=== PATIENT | female | born 1930 | race Caucasian/White ===

== ENCOUNTER → 2017-11-18 | Outpatient (CLI) | payer MEDICARE, BC ==
--- NOTE | 2017-11-18 20:22 | CT ---
EXAMINATION TYPE: CT sinus wo con DATE OF EXAM: 11/18/2017 COMPARISON: NONE HISTORY: Chronic sinusitis per order. Headache and facial pain CT DLP: 588 mGycm. Automated Exposure Control for Dose Reduction was Utilized. TECHNIQUE: CT scan of the sinuses is performed without contrast, axial images are obtained, coronal r eformatted images are also reviewed. FINDINGS: There is mild to moderate mucosal thickening with additional suspicious patchy suspicious o pacification the right maxillary sinus centrally. There is mild mucosal thickening with suspicious ai r-fluid level in the left maxillary sinus. There is curvilinear mucosal thickening posteriorly in the left sphenoid sinus medial aspect. The remainder of the paranasal sinuses are clear. The ostiomeatal complex is patent bilaterally on the coronal images seen best coronal image 19. Visualized portion of mastoid air cells show no abnormal opacification. The globes are intact bilate rally. Visualized brain parenchyma shows age-related atrophy and chronic small vessel ischemic nguyen e. IMPRESSION: Acute on chronic bilateral maxillary sinus disease.
== END | disposition home or self-care (01) ==
LOC: RADCTMAIN 19:32
PROVIDERS: ATTEND Otolaryngology
DX: J01.00 Acute maxillary sinusitis, unspecified (principal); J32.0 Chronic maxillary sinusitis
CPT/HCPCS: 70486

== ENCOUNTER → 2019-04-26 | Outpatient (CLI) | payer MEDICARE ==
--- NOTE | 2019-04-26 11:54 | US ---
EXAMINATION TYPE: US carotid duplex BILAT DATE OF EXAM: 04/26/2019 COMPARISON: NONE CLINICAL HISTORY: R09.89 Carotid bruit. EXAM MEASUREMENTS: RIGHT: Peak Systolic Velocity (PSV) cm/sec ----- Right CCA: 79.9 ----- Right ICA: 80.9 ----- Right ECA: 95.2 ICA/CCA ratio: 1.0 RIGHT: End Diastole cm/sec ----- Right CCA: 13.6 ----- Right ICA: 22.6 ----- Right ECA: 0.0 LEFT: Peak Systolic Velocity (PSV) cm/sec ----- Left CCA: 79.8 ----- Left ICA: 90.8 ----- Left ECA: 71.2 ICA/CCA ratio: 1.1 LEFT: End Diastole cm/sec ----- Left CCA: 10.6 ----- Left ICA: 22.6 ----- Left ECA: 11.0 VERTEBRALS (direction of flow): Right Vertebral: Antegrade Left Vertebral: Antegrade Rhythm: Normal Mild atherosclerotic changes with no significant velocity elevations. IMPRESSION: Mild degree of grayscale atheromatous plaquing with no sonographically evident hemodynam ically significant stenosis within either visualized carotid arterial system. Criteria for Assigning % of Stenosis / Diameter reduction (Estimation based on the indirect measurements of the internal carotid artery velocities (ICA PSV). 1. Normal (no stenosis)=ICA PSV < 125 cm/s: ratio < 2.0: ICA EDV<40 cm/s. 2. Less than 50% stenosis=ICA PSV < 125 cm/s: ratio < 2.0: ICA EDV<40 cm/s. 3. 50 to 69% stenosis=ICA PSV of 125 to 230 cm/s: ration 2.0 ? 4.0: ICA EDV 40-100 cm/s. 4. Greater than 70% stenosis to near occlusion= ICA PSV > 230 cm/s: ratio > 4.0: ICA EDV > 100 cm/s. 5. Near occlusion= ICA PSV velocities may be low or undetectable: variable ratio and ICA EDV. 6. Total occlusion=unable to detect flow.
== END | disposition home or self-care (01) ==
LOC: RADUSWWP 10:30
PROVIDERS: ATTEND Family Medicine
DX: I65.23 Occlusion and stenosis of bilateral carotid arteries (principal)
CPT/HCPCS: 93880

== ENCOUNTER → 2021-01-22 | Outpatient (CLI) | payer MEDICARE ==
--- NOTE | 2021-01-22 16:27 | US ---
EXAMINATION TYPE: US venous doppler duplex LE DATE OF EXAM: 01/22/2021 4:09 PM COMPARISON: NONE CLINICAL HISTORY: R22.42,R22.41 SWELLING BRI LIMBS. SIDE PERFORMED: Bilateral TECHNIQUE: The lower extremity deep venous system is examined utilizing real time linear array sonog zeus with graded compression, doppler sonography and color-flow sonography. VESSELS IMAGED: Common Femoral Vein Deep Femoral Vein Greater Saphenous Vein * Femoral Vein Popliteal Vein Small Saphenous Vein * Proximal Calf Veins (* superficial vessels) Right Leg: Negative for DVT Left Leg: Negative for DVT IMPRESSION: 1. Bilateral lower extremity ultrasound negative for deep venous thrombosis.
== END | disposition home or self-care (01) ==
LOC: RADUSWWP 15:38
PROVIDERS: ATTEND Family Medicine
DX: R22.41 Localized swelling, mass and lump, right lower limb (principal); R22.42 Localized swelling, mass and lump, left lower limb
CPT/HCPCS: 93970

== ENCOUNTER 2021-02-16 06:02 | Day surgery (SDC) | payer MEDICARE ==
[2021-02-12 10:09] VITALS: BMI 27.4
[~2021-02-16 06:02] MED LIST: LACTATED RINGERS 1,000 ML IV SCH; SODIUM CHLORIDE 0.9% 1,000 ML IV SCH
[2021-02-16] MEDS ORDERED: SODIUM CHLORIDE 0.9% 500 ML 500 ML IV ONE (06:20)
[2021-02-16 06:43] VITALS: TEMP 98.1
[2021-02-16 06:51] LABS: Glucose,Whole Blood 181 mg/dL (75-99)
[2021-02-16] MEDS: BENZOCAINE SPRAY 1 CAN TOPICAL ONE ×2 (07:14→07:19)
[2021-02-16] MEDS ORDERED: PROPOFOL 10 MG/ML 20 ML VIAL IV ONE (07:15)
[2021-02-16] MEDS ORDERED: LIDOCAINE 1% INJ 10MG/ML (20 ML MDV) ONE (07:15)
[2021-02-16] MEDS ORDERED: CYCLOBENZAPRINE 5 MG TAB PO PRN (07:36)
[2021-02-16] MEDS ORDERED: SODIUM CHLORIDE 0.9% 1,000 ML IV SCH (07:45)
[2021-02-16 08:19] VITALS: RESP 16
[2021-02-16] MEDS ORDERED: NON FORMULARY DRUG (Metformin Hcl [Glucophage] 1,000 MG Tablet) PO SCH (09:00)
[2021-02-16] MEDS ORDERED: methIMAzole 5 MG TAB PO SCH (09:00)
[2021-02-16] MEDS ORDERED: ATORVASTATIN 40 MG TAB PO SCH (09:00)
[2021-02-16] MEDS ORDERED: ASPIRIN 81 MG PO SCH (09:00)
[2021-02-16 09:16] VITALS: BP 117/58; PULSE 62
--- NOTE | 2021-02-16 11:38 | ECHOT ---
TRANSESOPHAGEAL ECHOCARDIOGRAM INDICATION: Atrial fibrillation. PROCEDURE: After explaining the procedure to the patient its risks and complication, blood pressure, heart rate, O2 saturation was monitored. The throat was sprayed with Cetacaine, she received sedation per Anesthesia Department. The probe was introduced in the esophagus without difficulty. Images were obtained. Following that, the probe was removed there was no immediate complication. FINDINGS: Left atrial size is dilated. Left atrial appendage is normal. Spontaneous contrast was noted. Left ventricular size and systolic function normal. The aortic valve revealed fibrocalcific change with aortic cusp with preserved opening. Mitral annular calcification was noted. The tricuspid valve is normal. Descending thoracic aorta revealed mild atherosclerotic changes. No pericardial effusion was noted. Doppler pulse wave and color Doppler obtained revealed moderate mitral with mild aortic and tricuspid regurgitation. There was no shunting by color Doppler study. CONCLUSION: 1. Dilated left atrium with normal appearance left atrial appendage with spontaneous contrast. 2. Normal size systolic function. 3. Aortic sclerosis with no evident stenosis with mild aortic regurgitation. 4. Mitral annulus calcification with moderate mitral regurgitation. 5. Mild tricuspid regurgitation. 6. Mild atherosclerotic changes of the descending thoracic aorta. 7. No shunting across the interatrial septum. MMODL / IJN: [id number] /
--- NOTE | 2021-02-16 12:05 | PCN ---
PROCEDURE NOTE CARDIOVERSION PROCEDURE NOTE: INDICATION: Atrial fibrillation. PROCEDURE: After explaining the procedure to the patient as well as its risks, complications, after obtaining sedated state and performing transesophageal echocardiogram, a synchronized biphasic cardioversion using 75 and subsequently 100 joules was successful in restoring sinus mechanism. There was no immediate complication. ZULEYKA / LEONCIO: [id number] /
[2021-02-16] MEDS ORDERED: APIXABAN 2.5 MG TABLET PO SCH (21:00)
[2021-02-16] MEDS ORDERED: atenoloL 50 MG TAB PO SCH (21:00)
[2021-02-16] MEDS ORDERED: amLODIPine 5 MG TAB PO SCH (21:00)
[2021-02-17] MEDS ORDERED: GLIMEPIRIDE 0.5 MG TAB PO SCH (07:30)
[2021-02-17] MEDS ORDERED: LOSARTAN 50 MG TAB PO SCH (09:00)
== END 2021-02-16 09:22 | disposition home or self-care (01) ==
LOC: CATHCVL 06:02
PROVIDERS: ATTEND Internal Medicine Interventional Cardiology
DX: I48.91 Unspecified atrial fibrillation (principal); I70.0 Atherosclerosis of aorta; I34.0 Nonrheumatic mitral (valve) insufficiency; E78.5 Hyperlipidemia, unspecified; I10 Essential (primary) hypertension; E11.9 Type 2 diabetes mellitus without complications; F17.200 Nicotine dependence, unspecified, uncomplicated; I25.10 Atherosclerotic heart disease of native coronary artery without angina pectoris; I49.9 Cardiac arrhythmia, unspecified; M19.90 Unspecified osteoarthritis, unspecified site; Z79.82 Long term (current) use of aspirin; Z82.49 Family history of ischemic heart disease and other diseases of the circulatory system
CPT/HCPCS: 93312; 93320; 93325; 92960; J2001; J2704

== ENCOUNTER 2021-06-05 21:45 | Inpatient (IN) | payer MEDICARE ==
[2021-06-05 22:51] LABS: Basophils % (A) 0 %; Eosinophils # (A) 0.1 k/uL (0-0.7); Eosinophils % (A) 1 %; HCT 39.6 % (34.0-46.0); HGB 12.9 gm/dL (11.4-16.0); Lymphocytes # (A) 1.4 k/uL (1.0-4.8); Lymphocytes % (A) 9 %; MCH 30.4 pg (25.0-35.0); MCHC 32.7 g/dL (31.0-37.0); Mean Platelet Volume 7.5; Monocytes # (A) 0.6 k/uL (0-1.0); Monocytes % (A) 4 %; Neutrophils # (A) 12.9 k/uL (1.3-7.7); Neutrophils % (A) 86 %; Platelet Count 380 k/uL (150-450); RBC 4.26 m/uL (3.80-5.40); RDW 14.6 % (11.5-15.5); WBC 15.1 k/uL (3.8-10.6)
[2021-06-05 22:52] LABS: Prothrombin Time 10.8 sec (9.0-12.0)
[2021-06-05 22:55] LABS: Albumin 3.8 g/dL (3.5-5.0); Calcium 9.6 mg/dL (8.4-10.2); Potassium 4.2 mmol/L (3.5-5.1); Total Bilirubin 0.4 mg/dL (0.2-1.3); Total Protein 6.6 g/dL (6.3-8.2)
--- NOTE | 2021-06-05 23:00 | ED ---
SOB HPI - General Stated Complaint: BOBBY Time Seen by Provider: 06/05/21 22:11 Source: RN notes reviewed, old records reviewed Limitations: no limitations - History of Present Illness Initial Comments: This is an 89-year-old female to the ER for evaluation significant shortness of breath especially with exertion. Patient does have recent diagnosis of coronavirus 2 weeks prior. Patient has again person Short of breath feeling better sitting still. Or significant shortness breath with activity. No current chest pain no other complaints no recent fevers she does admit to being probably the worse ever failure presented have coronavirus is atrial fibrillation diabetes high cholesterol MD Complaint: shortness of breath, cough -: hour(s) Severity: moderate Severity scale (1-10): 3 Consistency: constant Improves With: oxygen, rest Worsens With: exertion Known History Of: other (Recent coronavirus) Context: recent URI, recent illness Associated Symptoms: denies other symptoms Treatments Prior to Arrival: none - Related Data Home Medications Medication Instructions Recorded Confirmed Atorvastatin [Lipitor] 40 mg PO DAILY 08/18/15 02/16/21 Losartan [Cozaar] 100 mg PO DAILY 08/18/15 02/16/21 atenoloL [Tenormin] 50 mg PO BID 08/18/15 02/16/21 metFORMIN HCL [Glucophage] 1,000 mg PO BID 08/18/15 02/16/21 methIMAzole [Tapazole] 5 mg PO DAILY 08/18/15 02/16/21 ALPRAZolam [Xanax] 0.25 mg PO DAILY PRN 08/20/15 02/16/21 Acetaminophen-Codeine 300-30mg 1 - 2 tab PO Q8H PRN 08/20/15 02/16/21 [Tylenol w/codeine #3] Cyclobenzaprine [Flexeril] 5 mg PO HS PRN 08/20/15 02/16/21 Apixaban [Eliquis] 2.5 mg PO BID 02/12/21 02/16/21 Glimepiride [Amaryl] 0.5 mg PO AC-BRKFST 02/12/21 02/16/21 amLODIPine [Norvasc] 5 mg PO HS 02/12/21 02/16/21 Previous Rx's Medication Instructions Recorded Aspirin 81 mg PO DAILY chew 08/21/15 Allergies Allergy/AdvReac Type Severity Reaction Status Date / Time No Known Allergies Allergy Verified 06/05/21 23:09 Review of Systems ROS Statement: Those systems with pertinent positive or pertinent negative responses have been documented in the HPI. ROS Other: All systems not noted in ROS Statement are negative. Past Medical History Past Medical History: Atrial Fibrillation, Diabetes Mellitus, Hyperlipidemia, Hypertension, Osteoarthritis (OA) Additional Past Medical History / Comment(s): 08/20/15 Pt admitted to floor s/p PTCA with 2 stents placed. Other HX: NIDDM, HEART MURMUR, VERTIGO, arthritis in hands, migraines. History of Any Multi-Drug Resistant Organisms: None Reported Past Surgical History: Cholecystectomy, Heart Catheterization With Stent, Orthopedic Surgery Additional Past Surgical History / Comment(s): 08/20/15 PCI with stent to mid RCA and stent to proximal RCA. Other surgical hx: RIGHT HAND SURGERY- RECONSTRUCTION Past Anesthesia/Blood Transfusion Reactions: No Reported Reaction, Motion Sickness Date of Last Stent Placement:: 08/20/15 Smoking Status: Never smoker - Past Family History Mother Family Medical History: Cancer Additional Family Medical History / Comment(s): LIVER CANCER General Exam General appearance: alert, in no apparent distress Head exam: Present: atraumatic, normocephalic, normal inspection Eye exam: Present: normal appearance, PERRL, EOMI. Absent: scleral icterus, conjunctival injection, periorbital swelling ENT exam: Present: normal exam, mucous membranes moist Neck exam: Present: normal inspection. Absent: tenderness, meningismus, lymphadenopathy Respiratory exam: Present: normal lung sounds bilaterally, rhonchi, decreased breath sounds. Absent: respiratory distress, wheezes, rales, stridor Cardiovascular Exam: Present: regular rate, normal rhythm, normal heart sounds. Absent: systolic murmur, diastolic murmur, rubs, gallop, clicks GI/Abdominal exam: Present: soft, normal bowel sounds. Absent: distended, ten derness, guarding, rebound, rigid Extremities exam: Present: normal inspection, full ROM, normal capillary refill. Absent: tenderness, pedal edema, joint swelling, calf tenderness Back exam: Present: normal inspection Neurological exam: Present: alert, oriented X3, CN II-XII intact Psychiatric exam: Present: normal affect, normal mood Skin exam: Present: warm, dry, intact, normal color. Absent: rash Course Vital Signs 06/05/21 06/05/21 06/05/21 21:50 22:45 23:45 Temperature 99.9 F H Pulse Rate 78 72 Respiratory 16 20 16 Rate Blood Pressure 128/95 126/80 O2 Sat by Pulse 97 99 Oximetry 06/06/21 06/06/21 01:30 01:36 Temperature Pulse Rate 80 76 Respiratory 18 20 Rate Blood Pressure 120/77 126/77 O2 Sat by Pulse 97 99 Oximetry - Reevaluation(s) Reevaluation #1: 06/06/21 02:17 Record is reviewed Reevaluation #2: 06/06/21 02:17 Patient is in no significant distress, currently denying chest pain Reevaluation #3: 06/06/21 02:17 Patient is informed results and questions answered Medical Decision Making - Medical Decision Making 89 female to the ER today for evaluation of shortness of breath. Patient does have mildly elevated troponin will some CHF likely stress-related secondary recent coronavirus infection no chest pain currently. Patient [place] for cardiology evaluation - Lab Data Result diagrams: 06/05/21 22:28 06/05/21 22:28 Lab Results 06/05/21 06/05/21 06/05/21 Range/Units 22:28 22:28 22:28 WBC 15.1 H (3.8-10.6) k/uL RBC 4.26 (3.80-5.40) m/uL Hgb 12.9 (11.4-16.0) gm/dL Hct 39.6 (34.0-46.0) % MCV 93.0 (80.0-100.0) fL MCH 30.4 (25.0-35.0) pg MCHC 32.7 (31.0-37.0) g/dL RDW 14.6 (11.5-15.5) % Plt Count 380 (150-450) k/uL MPV 7.5 Neutrophils % 86 % Lymphocytes % 9 % Monocytes % 4 % Eosinophils % 1 % Basophils % 0 % Neutrophils # 12.9 H (1.3-7.7) k/uL Lymphocytes # 1.4 (1.0-4.8) k/uL Monocytes # 0.6 (0-1.0) k/uL Eosinophils # 0.1 (0-0.7) k/uL Basophils # 0.0 (0-0.2) k/uL PT 10.8 (9.0-12.0) sec INR 1.0 (<1.2) Sodium 137 (137-145) mmol/L Potassium 4.2 (3.5-5.1) mmol/L Chloride 101 (98-107) mmol/L Carbon Dioxide 24 (22-30) mmol/L Anion Gap 12 mmol/L BUN 22 H (7-17) mg/dL Creatinine 0.78 (0.52-1.04) mg/dL Est GFR (CKD-EPI)AfAm 78 (>60 ml/min/1.73 sqM) Est GFR (CKD-EPI)NonAf 68 (>60 ml/min/1.73 sqM) Glucose 191 H (74-99) mg/dL Calcium 9.6 (8.4-10.2) mg/dL Total Bilirubin 0.4 (0.2-1.3) mg/dL AST 96 H (14-36) U/L ALT 69 H (4-34) U/L Alkaline Phosphatase 142 H (38-126) U/L Troponin I (0.000-0.034) ng/mL Total Protein 6.6 (6.3-8.2) g/dL Albumin 3.8 (3.5-5.0) g/dL Coronavirus (PCR) (Not Detectd) 06/05/21 06/05/21 Range/Units 22:28 23:08 WBC (3.8-10.6) k/uL RBC (3.80-5.40) m/uL Hgb (11.4-16.0) gm/dL Hct (34.0-46.0) % MCV (80.0-100.0) fL MCH (25.0-35.0) pg MCHC (31.0-37.0) g/dL RDW (11.5-15.5) % Plt Count (150-450) k/uL MPV Neutrophils % % Lymphocytes % % Monocytes % % Eosinophils % % Basophils % % Neutrophils # (1.3-7.7) k/uL Lymphocytes # (1.0-4.8) k/uL Monocytes # (0-1.0) k/uL Eosinophils # (0-0.7) k/uL Basophils # (0-0.2) k/uL PT (9.0-12.0) sec INR (<1.2) Sodium (137-145) mmol/L Potassium (3.5-5.1) mmol/L Chloride (98-107) mmol/L Carbon Dioxide (22-30) mmol/L Anion Gap mmol/L BUN (7-17) mg/dL Creatinine (0.52-1.04) mg/dL Est GFR (CKD-EPI)AfAm (>60 ml/min/1.73 sqM) Est GFR (CKD-EPI)NonAf (>60 ml/min/1.73 sqM) Glucose (74-99) mg/dL Calcium (8.4-10.2) mg/dL Total Bilirubin (0.2-1.3) mg/dL AST (14-36) U/L ALT (4-34) U/L Alkaline Phosphatase (38-126) U/L Troponin I 0.054 H* (0.000-0.034) ng/mL Total Protein (6.3-8.2) g/dL Albumin (3.5-5.0) g/dL Coronavirus (PCR) Not Detected (Not Detectd) - Radiology Data Radiology results: report reviewed (Chest x-ray shows minimal bilateral infiltrate effusion, CT negative for PE), image reviewed Critical Care Time Critical Care Time: Yes Total Critical Care Time: 31 Disposition Clinical Impression: Acute pulmonary edema, Weakness, Elevated troponin, Congestive heart failure Disposition: ADMITTED IP TO THIS [facility] Condition: Fair Is patient prescribed a controlled substance at d/c from ED?: No
--- NOTE | 2021-06-05 23:36 | XR ---
EXAMINATION TYPE: XR chest 2V DATE OF EXAM: 06/05/2021 COMPARISON: NONE HISTORY: Short of breath TECHNIQUE: 2 views FINDINGS: Heart is normal. There is some coarsening of the interstitial markings in the mid and lower lung ang. There is mild blunting of the costophrenic angles. Bony thorax is intact. IMPRESSION: Small pleural effusions. Mild interstitial infiltrate at the lung bases. No obvious heart failure.
[2021-06-06] MEDS ORDERED: LORazepam 2 MG/ML INJ IV PRN (02:13)
[2021-06-06] MEDS ORDERED: MORPHINE SULFATE 4 MG/ML SYRINGE IV PRN (02:13)
[2021-06-06] MEDS ORDERED: NALOXONE 0.4 MG/ML 1 ML VIAL IV PRN (02:13)
[2021-06-06] MEDS ORDERED: IPRATROPIUM-ALBUTEROL 3 ML NEB INHALATION PRN (02:15)
[2021-06-06] MEDS ORDERED: SODIUM CHLORIDE 0.9% 1,000 ML IV SCH ×2 (02:15→07:45)
[2021-06-06] MEDS ORDERED: IPRATROPIUM-ALBUTEROL 3 ML NEB INHALATION STA (02:15)
--- NOTE | 2021-06-06 03:17 | CT ---
EXAMINATION TYPE: CT angio chest DATE OF EXAM: 06/06/2021 COMPARISON: None HISTORY: R/O PE CT DLP: 256 mGycm Automated exposure control for dose reduction was used. CONTRAST: Performed with IV Contrast, patient injected with 70 mL of Isovue 370. There are 3-D post processed images. There are small bilateral pleural effusions. Heart is borderline enlarged. There is no pericardial ef fusion. There is some mild atelectasis at the lung bases. Thoracic aorta is atheromatous. 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 There is no sign of dissection. There is normal contrast opacification of the pulmonary arteries. There are no filling defects. There is some spurring in the thoracic spine. There is no compression fracture. Sternum is intact. IMPRESSION: No evidence of pulmonary embolism. Small pleural effusions with some patchy basilar atelectasis and s carring. No suspicious pulmonary mass. Mild thoracic aortic aneurysm.
[2021-06-06] MEDS ORDERED: ALBUTEROL NEBULIZED 2.5 MG/3 ML INHALATION PRN (04:10)
[2021-06-06] MEDS ORDERED: HEPARIN SODIUM 1,000 UN/ML (10ML VL) IV ONE ×2 (04:21→07:08)
[2021-06-06] MEDS ORDERED: HEPARIN SODIUM 1,000 UN/ML (10ML VL) IV PRN (04:21)
[2021-06-06] MEDS ORDERED: HEPARIN SOD,PORK IN 0.45% NACL 25,000 UNIT in 0.45% NACL 1 250ML.BAG IV SCH (04:30)
[2021-06-06] MEDS ORDERED: ASPIRIN 81 MG PO STA (04:56)
[2021-06-06] MEDS ORDERED: SODIUM CHLORIDE 0.9% 1,000 ML IV ONE (06:40)
[2021-06-06] MEDS ORDERED: diphenhydrAMINE 50 MG/ML 1 ML VIAL ONE (06:53)
[2021-06-06] MEDS ORDERED: fentaNYL (PF) 50 MCG/ML 5 ML AMP IV ONE ×4 (06:53)
[2021-06-06] MEDS ORDERED: diphenhydrAMINE 50 MG/ML 1 ML VIAL IVP ONE (06:53)
[2021-06-06] MEDS ORDERED: LIDOCAINE 1% INJ 10MG/ML (20 ML MDV) SQ ONE (06:55)
[2021-06-06] MEDS ORDERED: HEPARIN SODIUM 1,000 UN/ML (10ML VL) ONE (06:55)
[2021-06-06] MEDS ORDERED: VERAPAMIL SYRINGE (5 MG/10 ML) INTRAARTER ONE (06:57)
[2021-06-06] MEDS ORDERED: IOPAMIDOL-370 125ML BTL INJ ONE (07:11)
--- NOTE | 2021-06-06 07:35 | CONS ---
CONSULTATION This is an 89-year-old lady with history of coronary artery disease, status post angioplasty of right coronary artery, persistent atrial fibrillation, status post cardioversion in January, hypertension, diabetes and dyslipidemia who presented to hospital around 10:30 last evening complaining of shortness of breath. She states that she has been in her usual state of health, and from around 7:30 p.m. started becoming short of breath with activity, primarily going up a flight of stairs. As it got worse, she call EMS and came to the hospital, where she has been since 10:30 from last night until now. Around 5:00 this morning the ER physician called me stating that he got a second set of troponin back that was around 0.6. The first set of troponin last night was at 0.05, and then he went on to do an EKG, where he saw subtle ST-T changes. EKG showed ST-segment elevation in V5 and poor R-wave progression. Patient was not having any chest pain and her symptom was shortness of breath which was getting better. I advised him to start her on IV heparin. She already had a CT scan of the chest that was negative for pulmonary embolism. I had them repeat an EKG, in which found the ST-segment elevation was gone, but patient continues to have poor R-wave progression and very subtle ST elevation in V1 and V2. Patient states that she suffered from COVID following her travel to the [facility] for a family get-together for [employer], isolated there for about 10 days and just returned home. At the time of my evaluation, she is comfortable at rest, hemodynamically stable, does not seem to be in distress but states that with very little activity she is feeling short of breath. I advised the patient to undergo cardiac catheterization to rule out significant obstructive CAD and if necessary perform angioplasty on her. I am going to get hold of Dr. Maurer, her primary board catcher, to proceed with the same. PAST MEDICAL HISTORY: Past medical history is significant for persistent atrial fibrillation, status post cardioversion, coronary artery disease, status post angioplasty of right coronary artery, hypertension, diabetes and dyslipidemia. CURRENT MEDICATIONS: Current medications include Tapazole, Glucophage, Tenormin 50 b.i.d., Norvasc 5 daily, losartan, Amaryl, Flexeril, Lipitor, aspirin, Eliquis and Tylenol with codeine. ALLERGIES: CHARTED. FAMILY HISTORY: Negative for premature coronary artery disease. SOCIAL HISTORY: Negative for smoking, EtOH abuse or drug abuse. REVIEW OF SYSTEMS: HEENT is unremarkable. CARDIAC: As described above. RESPIRATORY: As described above. GI: Negative. GENITOURINARY: Negative. ALLERGY/IMMUNOLOGY: Negative. SKIN: Negative. MUSCULOSKELETAL: Significant for arthritis. PSYCHOSOCIAL: Negative. ENDOCRINE: Negative. DERMATOLOGY: Negative. CONSTITUTIONAL: Negative. ONCOLOGICAL: Negative. PRIVACY ATTORNEY: Negative. Rest of the system review is not relevant. PHYSICAL EXAMINATION: Patient is comfortable at rest. Afebrile. Heart rate is 76 beats per minute. Blood pressure is 102/53, respiratory rate is 18, O2 saturation is 99% on 2 L. There is no jugular venous distention. Carotid upstroke is normal. There is no bruit. Chest exam reveals diminished air entry at the bases. I do not hear any crackles or rhonchi. Heart exam reveals first and second heart sounds. No gallop. Has a short systolic murmur at the apex. Abdomen is soft. Examination of extremities did not reveal any edema. Peripheral pulses are felt. LABS: The hemoglobin is 12.9, platelet count is , potassium is 4.2, creatinine is 0.7. Troponins are at 0.05 and 0.6. Coronavirus is negative. ASSESSMENT: Shortness of breath in a patient with recent anteroseptal myocardial infarction. PLAN: I advised the patient to undergo cardiac catheterization. We will proceed with this sometime this morning. Patient is currently being treated with aspirin, IV heparin, and as blood pressure tolerates, will resume the beta blockers, RONNELL inhibitors. We will resume the statin. I discussed issues at length with the patient. She understands and is in agreement with the plan. MMODL / IJN: [id number] /
[2021-06-06] MEDS ORDERED: RX INFO: IV CONTRAST WAS GIVEN 1 EACH MISC MISCELLANE PRN (07:36)
--- NOTE | 2021-06-06 07:46 | CC ---
CARDIAC CATHETERIZATION REPORT Mrs. Lin is an 89-year-old female with a known history of coronary artery disease, status post stenting of the RCA in 2016, history of atrial fibrillation and cardioversion, who presented with acute-onset dyspnea, had minimal troponin elevation and transient EKG changes. She was evaluated by Dr. Choi, who recommended cardiac catheterization. The procedure as well as risks and complications were discussed with the patient, who was in full understanding and agreement. PROCEDURE DESCRIPTION: Patient was brought to the chemistry laboratory technician in a fasting, semi-sedated state after receiving fentanyl and Benadryl and achieving a moderate conscious sedated state. Using Xylocaine anesthesia and Seldinger technique, a 6-Iranian sheath was introduced in the right radial artery. Selective right and left coronary angiography was performed using 5-Iranian 3.5 bend right and left Amber catheters. Multiple views were taken of the arteries, including hemiaxial views. Following that, a 5-Iranian tight pigtail catheter was introduced into the left ventricle and pressure was calculated. Following that, catheter and sheath were removed. Hemostasis was obtained with deployment of a TR band. There was no immediate complication. Patient was returned to her room in stable condition. Of note, the patient received 3500 units of intravenous heparin and intraarterial verapamil. FINDINGS: FLUOROSCOPY: There was significant calcification involving the proximal LAD and the right coronary artery. LEFT MAIN: This is a large-sized vessel bifurcating into left circumflex and left anterior descending artery. Left main coronary artery has no evidence of high-grade stenosis. LEFT ANTERIOR DESCENDING ARTERY: This is a large-sized vessel reaching toward the apex with a wrap around the apex segment giving rise to 2 diagonal branches. The proximal LAD has 20% to 30% plaque at the takeoff of the first diagonal branch. The rest of the vessel has no high-grade stenosis. LEFT CIRCUMFLEX: This is a nondominant vessel, moderate in caliber, giving rise to a large obtuse marginal branch. The proximal left circumflex has a 40% to 50% plaque. The rest of the vessel has no high-grade stenosis. RIGHT CORONARY ARTERY: This is a large dominant vessel bifurcating distally into PDA and posterolateral segment and branches. The right coronary artery stented segment in the proximal and mid area are patent. There is no evidence in-stent stenosis. There is no evidence of significant obstructive disease. LEFT VENTRICULOGRAM: Left ventriculogram was not performed. HEMODYNAMICS: There was no gradient across the aortic valve. The left ventricular end- diastolic pressure was 10 to 14 mmHg. CONCLUSION: 1. Calcified coronary arteries. 2. Mild to moderate disease in the LAD and the left circumflex. 3. Patent stent of the RCA. RECOMMENDATIONS: In view of findings and anatomy, I have recommended continued medical therapy with the aggressive coronary risk modifications that have been initiated. Those findings and recommendations were discussed with the patient, and she is in full understanding and agreement. Duration of sedation was 22 minutes. MMODL / IJN: [id number] /
[2021-06-06] MEDS ORDERED: FUROSEMIDE 10 MG/ML 4 ML VIAL IV STA (08:22)
[2021-06-06] MEDS: ATORVASTATIN 40 MG TAB PO SCH (08:38)
[2021-06-06] MEDS: atenoloL 50 MG TAB PO SCH ×2 (08:38→20:29)
[2021-06-06] MEDS: methIMAzole 5 MG TAB PO SCH (08:39)
[2021-06-06] MEDS ORDERED: LOSARTAN 50 MG TAB PO SCH (09:00)
--- NOTE | 2021-06-06 09:22 | P.HPIM ---
History of Present Illness H&P Date: 06/05/21 Chief Complaint: Shortness of breath This is a pleasant 89-year-old female who presents to [facility] ER with increased shortness of breath. After dinner last night patient was walking up the stairs and felt more short of breath than she usually does. This was abno rmal for her. As a result her called EMS and patient was brought to the emergency department. Patient denies ever having chest pain. Patient has noted increased bilateral lower extremity edema. Patient has a known history of diabetes type 2, coronary artery disease with PTCA 1, hypertension, hyperlipidemia, and history of atrial fib status post ablation. Patient was identified as having a STEMI. Patient was placed on IV heparin. Repeat EKG showed ST elevation resolution. Patient was taken to the [facility] after discussion with cardiology and concern for coronary artery disease progression. Cath report showed calcified coronary arteries, mild to moderate disease in the LAD and left circumflex, and a patent stent of the RCA. Medical management was recommended. CTA of the chest showed no evidence of pulmonary embolism. Small pleural effusions with some patchy basilar atelectasis and scarring. No suspicious pulmonary mass. Mild thoracic aortic aneurysm. On assessment patient states that she feels okay despite her shortness of breath. Patient is currently on 3 L of oxygen nasal cannula. Patient continues to have difficulty breathing. Patient states that albuterol inhalers to help her breathing. Echocardiogram has been ordered and is pending. White blood cell count was slightly elevated at 15. This is likely reactive and will repeat CBC. Review of Systems A 14 point review of systems was assessed patient was only positive for those discussed in HPI. Past Medical History Past Medical History: Atrial Fibrillation, Diabetes Mellitus, Hyperlipidemia, Hypertension, Osteoarthritis (OA) Additional Past Medical History / Comment(s): 08/20/15 Pt admitted to floor s/p PTCA with 2 stents placed. Other HX: NIDDM, HEART MURMUR, VERTIGO, arthritis in hands, migraines. History of Any Multi-Drug Resistant Organisms: None Reported Past Surgical History: Cholecystectomy, Heart Catheterization With Stent, Orthopedic Surgery Additional Past Surgical History / Comment(s): 08/20/15 PCI with stent to mid RCA and stent to proximal RCA. Other surgical hx: RIGHT HAND SURGERY- RECONSTRUCTION Past Anesthesia/Blood Transfusion Reactions: No Reported Reaction, Motion S ickness Date of Last Stent Placement:: 08/20/15 Smoking Status: Never smoker - Past Family History Mother Family Medical History: Cancer Additional Family Medical History / Comment(s): LIVER CANCER Medications and Allergies Home Medications Medication Instructions Recorded Confirmed Type Atorvastatin [Lipitor] 40 mg PO DAILY 08/18/15 02/16/21 History Losartan [Cozaar] 100 mg PO DAILY 08/18/15 02/16/21 History atenoloL [Tenormin] 50 mg PO BID 08/18/15 02/16/21 History metFORMIN HCL [Glucophage] 1,000 mg PO BID 08/18/15 02/16/21 History methIMAzole [Tapazole] 5 mg PO DAILY 08/18/15 02/16/21 History ALPRAZolam [Xanax] 0.25 mg PO DAILY PRN 08/20/15 02/16/21 History Acetaminophen-Codeine 300-30mg 1 - 2 tab PO Q8H PRN 08/20/15 02/16/21 History [Tylenol w/codeine #3] Cyclobenzaprine [Flexeril] 5 mg PO HS PRN 08/20/15 02/16/21 History Aspirin 81 mg PO DAILY chew 08/21/15 02/16/21 Rx Apixaban [Eliquis] 2.5 mg PO BID 02/12/21 02/16/21 History Glimepiride [Amaryl] 0.5 mg PO [id number] 02/12/21 02/16/21 History amLODIPine [Norvasc] 5 mg PO HS 02/12/21 02/16/21 History Allergies Allergy/AdvReac Type Severity Reaction Status Date / Time No Known Allergies Allergy Verified 06/05/21 23:09 Physical Exam Osteopathic Statement: *. No significant issues noted on an osteopathic structural exam other than those noted in the History and Physical/Consult. Vitals: Vital Signs Temp Pulse Pulse Resp BP BP Pulse Ox 06/06/21 06:32 98.3 F 65 18 136/83 97 06/06/21 03:45 76 20 102/53 99 06/06/21 01:36 76 20 126/77 99 06/06/21 01:30 80 18 120/77 97 06/05/21 23:45 72 16 126/80 99 06/05/21 22:45 20 06/05/21 21:50 99.9 F H 78 16 128/95 97 Intake and Output 06/05/21 06/06/21 06/06/21 22:59 06:59 14:59 Intake Total 150 118 Balance 150 118 Intake: IV 150 Oral 118 Other: # Voids 1 Weight 65.771 kg 69 kg General: [non toxic], [no distress], [appears at stated age] Derm: [warm], [dry] Head: [atraumatic], [normocephalic], [symmetric] Eyes: [EOMI], [no lid lag], [anicteric sclera] Mouth: [no lip lesion], [mucus membranes moist] Cardiovascular: [S1S2 reg], [no murmur], [positive posterior tibial pulse bilateral], +2 B/L LE edema Lungs: [CTA bilateral], [no rhonchi, no rales] , [no accessory muscle use] Abdominal: [soft], [ nontender to palpation], [no guarding], [no appreciable organomegaly] Ext: [no gross muscle atrophy], [no edema], [no contractures] Neuro: [ CN II-XI grossly intact], [no focal neuro deficits] Psych: [Alert], [oriented], [appropriate affect] Results CBC & Chem 7: 06/05/21 22:28 06/05/21 22:28 Labs: Abnormal Lab Results - Last 24 Hours (Table) 06/05/21 06/05/21 06/05/21 Range/Units 22:28 22:28 22:28 WBC 15.1 H (3.8-10.6) k/uL Neutrophils # 12.9 H (1.3-7.7) k/uL BUN 22 H (7-17) mg/dL Glucose 191 H (74-99) mg/dL AST 96 H (14-36) U/L ALT 69 H (4-34) U/L Alkaline Phosphatase 142 H (38-126) U/L Troponin I 0.054 H* (0.000-0.034) ng/mL 06/06/21 Range/Units 03:12 WBC (3.8-10.6) k/uL Neutrophils # (1.3-7.7) k/uL BUN (7-17) mg/dL Glucose (74-99) mg/dL AST (14-36) U/L ALT (4-34) U/L Alkaline Phosphatase (38-126) U/L Troponin I 0.620 H* (0.000-0.034) ng/mL Thrombosis Risk Factor Assmnt - DVT/VTE Prophylaxis DVT/VTE Prophylaxis: Pharmacologic Prophylaxis ordered Assessment and Plan Assessment: Dyspnea likely due to acute coronary syndrome Patient status post cath Cath report showed calcified coronary arteries, mild to moderate disease in the LAD and left circumflex, and a patent stent of the RCA. Aggressive medical management recommended Cardiology following Lasix with KCL added for increased lower extremity edema Duo nebs and Pulmicort added for shortness of breath Echo pending Leukocytosis likely reactive Repeat CBC Vnv-ipppfmo-yjcqpegct diabetes mellitus type 2 Resume home medications Monitor glucose levels every 6 hours Insulin sliding scale Check hemoglobin A1c Hypertension controlled Resume home medications Hyperlipidemia with CAD Resume statin and aspirin History of atrial fibrillation status post ablation Resume eliquis Check TSH with reflex GI DVT prophylaxis A.m. labs Patient is a full code Anticipated discharge 1-2 days Time with Patient: Greater than 30
[2021-06-06] MEDS ORDERED: FAMOTIDINE 20 MG TAB PO SCH (09:30)
[2021-06-06 10:41] LABS: Basophils % (A) 0 %; Eosinophils % (A) 0 %; HCT 43.5 % (34.0-46.0); Lymphocytes # (A) 1.7 k/uL (1.0-4.8); Lymphocytes % (A) 15 %; MCH 30.5 pg (25.0-35.0); MCHC 32.2 g/dL (31.0-37.0); Mean Platelet Volume 7.2; Monocytes # (A) 0.5 k/uL (0-1.0); Monocytes % (A) 4 %; Neutrophils # (A) 9.3 k/uL (1.3-7.7); Neutrophils % (A) 80 %; Platelet Count 334 k/uL (150-450); RBC 4.59 m/uL (3.80-5.40); RDW 14.2 % (11.5-15.5); WBC 11.6 k/uL (3.8-10.6)
[2021-06-06 11:25] LABS: ALT 120 U/L (4-34); AST 145 U/L (14-36); African American GFR (CKD) 68 (>60 ml/min/1.73 sqM); Albumin 4.2 g/dL (3.5-5.0); Alkaline Phosphatase 133 U/L (38-126); Anion Gap 15 mmol/L; Blood Urea Nitrogen 22 mg/dL (7-17); Calcium 9.8 mg/dL (8.4-10.2); Carbon Dioxide 25 mmol/L (22-30); Chloride 100 mmol/L (98-107); Glucose 264 mg/dL (74-99); Non-African American GFR(CKD) 59 (>60 ml/min/1.73 sqM); Potassium 4.4 mmol/L (3.5-5.1); Sodium 140 mmol/L (137-145); Total Bilirubin 0.7 mg/dL (0.2-1.3); Total Protein 7.1 g/dL (6.3-8.2)
[2021-06-06 11:41] LABS: Glucose,Whole Blood 217 mg/dL (75-99)
[2021-06-06] MEDS: IPRATROPIUM-ALBUTEROL 3 ML NEB INHALATION SCH ×3 (12:56→20:13)
[2021-06-06] MEDS: POTASSIUM CHLORIDE ER 20 MEQ TAB.ER PO SCH (13:17)
[2021-06-06] MEDS: INSULIN ASPART (NovoLOG) 100 UNIT/ML VIAL SQ SCH ×2 (13:19→18:00)
--- NOTE | 2021-06-06 13:54 | ECHOF ---
Referral Reason:cad MEASUREMENTS -------- HEIGHT: 160.0 cm WEIGHT: 69.4 kg BP: IVSd: 1.0 cm (0.6 - 1.1) LVIDd: 3.9 cm (3.9 - 5.3) LVPWd: 0.9 cm (0.6 - 1.1) IVSs: 1.3 cm LVIDs: 3.1 cm LVPWs: 1.3 cm LA Diam: 4.2 cm (2.7 - 3.8) LAESV Index (A-L): 25.31 ml/m Ao Diam: 2.9 cm (2.0 - 3.7) AV Cusp: 1.2 cm (1.5 - 2.6) LA Diam: 3.5 cm (2.7 - 3.8) MV EXCURSION: 13.991 mm (> 18.000) MV EF SLOPE: 37 mm/s (70 - 150) EPSS: 0.4 cm MV E Memo: 0.88 m/s MV DecT: 226 ms MV A Memo: 0.24 m/s MV E/A Ratio: 3.61 RAP: 5.00 mmHg RVSP: 41.43 mmHg FINDINGS -------- Sinus rhythm. This was a technically adequate study. The left ventricular size is normal. There is mild concentric left ventricular hypertrophy. Overa ll left ventricular systolic function is moderate-severely impaired with, an EF between 30 - 35 %. Mid anterior LV wall motion is hypokinetic. Mid anteroseptal LV wall motion is hypokinetic. Api chela anterior LV wall motion is hypokinetic. Apical septum LV wall motion is hypokinetic. The right ventricle is normal in size. Normal LA size by volume 22+/-6 ml/m2. The right atrial size is normal. There is mild aortic valve sclerosis. Mild mitral annular calcification present. Mild mitral regurgitation is present. The tricuspid valve appears structurally normal. Mild tricuspid regurgitation present. There is m ild pulmonary hypertension. The right ventricular systolic pressure, as measured by Doppler, is 41. 43mmHg. The pulmonic valve was not well visualized. The aortic root size is normal. There is no pericardial effusion. CONCLUSIONS -------- 1. There is mild concentric left ventricular hypertrophy. 2. Overall left ventricular systolic function is moderate-severely impaired with, an EF between 30 - 35 %. 3. Mid anterior LV wall motion is hypokinetic. 4. Mid anteroseptal LV wall motion is hypokinetic. 5. Apical anterior LV wall motion is hypokinetic. 6. Apical septum LV wall motion is hypokinetic. 7. Normal LA size by volume 22+/-6 ml/m2. 8. Mild mitral regurgitation is present. 9. Mild tricuspid regurgitation present. 10. There is mild pulmonary hypertension. INSTRUCTIONAL SYSTEMS DESIGN CONSULTANT: Yandy Barnes RDCS
[2021-06-06 16:28] LABS: Glucose,Whole Blood 137 mg/dL (75-99)
[2021-06-06] MEDS ORDERED: BUDESONIDE 1 MG/2 ML NEBU INHALATION SCH (20:00)
[2021-06-06 20:16] LABS: Glucose,Whole Blood 128 mg/dL (75-99)
[2021-06-06] MEDS ORDERED: CYCLOBENZAPRINE 5 MG TAB PO PRN (21:00)
[2021-06-06] MEDS ORDERED: amLODIPine 5 MG TAB PO SCH (21:00)
[2021-06-06 21:36] LABS: Glucose,Whole Blood 130 mg/dL (75-99)
[2021-06-07] MEDS: IPRATROPIUM-ALBUTEROL 3 ML NEB INHALATION SCH ×7 (00:59→23:12)
[2021-06-07 06:20] LABS: Glucose,Whole Blood 178 mg/dL (75-99)
[2021-06-07] MEDS: INSULIN ASPART (NovoLOG) 100 UNIT/ML VIAL SQ SCH ×3 (06:48→17:30)
[2021-06-07] MEDS ORDERED: GLIMEPIRIDE 0.5 MG TAB PO SCH (07:30)
[2021-06-07] MEDS ORDERED: ACETAMINOPHEN TAB 325 MG TAB PO PRN (08:16)
[2021-06-07] MEDS: POTASSIUM CHLORIDE ER 20 MEQ TAB.ER PO SCH (08:17)
[2021-06-07] MEDS ORDERED: ONDANSETRON 4 MG/2 ML VIAL IVP PRN (08:17)
[2021-06-07] MEDS: FUROSEMIDE 40 MG TAB PO SCH (08:17)
[2021-06-07] MEDS: ATORVASTATIN 40 MG TAB PO SCH (08:18)
[2021-06-07] MEDS: methIMAzole 5 MG TAB PO SCH (08:18)
[2021-06-07] MEDS: ASPIRIN 81 MG PO SCH (08:18)
[2021-06-07] MEDS: FAMOTIDINE 20 MG TAB PO SCH (08:18)
[2021-06-07] MEDS: GLIMEPIRIDE 1 MG TAB PO SCH (08:19)
[2021-06-07 08:21] LABS: Basophils % (A) 0 %; Eosinophils % (A) 0 %; HCT 37.9 % (34.0-46.0); Lymphocytes # (A) 1.6 k/uL (1.0-4.8); Lymphocytes % (A) 17 %; MCHC 31.6 g/dL (31.0-37.0); Mean Platelet Volume 7.7; Monocytes # (A) 0.4 k/uL (0-1.0); Monocytes % (A) 4 %; Neutrophils # (A) 7.2 k/uL (1.3-7.7); Neutrophils % (A) 78 %; Platelet Count 212 k/uL (150-450); RBC 3.99 m/uL (3.80-5.40); RDW 14.5 % (11.5-15.5); WBC 9.3 k/uL (3.8-10.6)
--- NOTE | 2021-06-07 08:27 | P.PN ---
Subjective Progress Note Date: 06/07/21 Principal diagnosis: Shortness of breath Patient seen and examined at bedside. Patient is awake alert and answers questions appropriately. Patient denies chest pain however she continues to exhibit shortness of breath. Patient's blood pressure has been running lower than normal. Medications have been adjusted and parameters have been put in place. Echocardiogram was reviewed and patient has an ejection fraction of 30- 35% causing most of her shortness of breath. Patient states that she had a headache this morning with some nausea. The headache is not the worst headache of her life. Patient denies focal neurological deficits. Objective - Vital Signs Vital signs: Vital Signs Temp 97.7 F 06/06/21 20:00 Pulse 80 06/07/21 05:16 Resp 16 06/07/21 04:00 BP 91/53 06/07/21 04:00 Pulse Ox 97 06/07/21 04:00 Intake & Output 06/06/21 06/07/21 06/07/21 18:59 06:59 18:59 Intake Total 354 970 240 Balance 354 970 240 Weight 69 kg 76.1 kg Intake: Oral 354 970 240 Other: Voiding Method Toilet # Voids 2 2 # Bowel Movements 1 - Exam General: [non toxic], [no distress], [appears at stated age] Derm: [warm], [dry] Head: [atraumatic], [normocephalic], [symmetric] Eyes: [EOMI], [no lid lag], [anicteric sclera] Mouth: [no lip lesion], [mucus membranes moist] Cardiovascular: [S1S2 reg], [no murmur], [positive posterior tibial pulse bilateral], +2 b/l lower extremity edema Lungs: [CTA bilateral], [no rhonchi, no rales] , [no accessory muscle use] Abdominal: [soft], [ nontender to palpation], [no guarding], [no appreciable organomegaly] Ext: [no gross muscle atrophy], [no edema], [no contractures] Neuro: [ CN II-XI grossly intact], [no focal neuro deficits] Psych: [Alert], [oriented], [appropriate affect] - Labs CBC & Chem 7: 06/06/21 10:31 06/06/21 10:31 Labs: Abnormal Lab Results - Last 24 Hours (Table) 06/06/21 06/06/21 06/06/21 Range/Units 10:31 10:31 10:31 WBC 11.6 H (3.8-10.6) k/uL Neutrophils # 9.3 H (1.3-7.7) k/uL BUN 22 H (7-17) mg/dL Glucose 264 H (74-99) mg/dL POC Glucose (mg/dL) (75-99) mg/dL Hemoglobin A1c (4.0-6.0) % AST 145 H (14-36) U/L ALT 120 H (4-34) U/L Alkaline Phosphatase 133 H (38-126) U/L Troponin I 0.691 H* (0.000-0.034) ng/mL 06/06/21 06/06/21 06/06/21 Range/Units 10:31 11:39 16:26 WBC (3.8-10.6) k/uL Neutrophils # (1.3-7.7) k/uL BUN (7-17) mg/dL Glucose (74-99) mg/dL POC Glucose (mg/dL) 217 H 137 H (75-99) mg/dL Hemoglobin A1c 7.4 H (4.0-6.0) % AST (14-36) U/L ALT (4-34) U/L Alkaline Phosphatase (38-126) U/L Troponin I (0.000-0.034) ng/mL 06/06/21 06/06/21 06/07/21 Range/Units 20:12 21:34 06:19 WBC (3.8-10.6) k/uL Neutrophils # (1.3-7.7) k/uL BUN (7-17) mg/dL Glucose (74-99) mg/dL POC Glucose (mg/dL) 128 H 130 H 178 H (75-99) mg/dL Hemoglobin A1c (4.0-6.0) % AST (14-36) U/L ALT (4-34) U/L Alkaline Phosphatase (38-126) U/L Troponin I (0.000-0.034) ng/mL Assessment and Plan Assessment: Dyspnea likely due to acute coronary syndrome with decompensated systolic heart failure Echocardiogram reviewed and reveals an ejection fraction of 30-35% Entresto and Coreg added with parameters Patient status post cath Cath report showed calcified coronary arteries, mild to moderate disease in the LAD and left circumflex, and a patent stent of the RCA. Aggressive medical management recommended Cardiology recommendations appreciated Continue Lasix with KCL Duo nebs and Pulmicort added for shortness of breath Hypotension likely due to medications Atenolol, Norvasc, and losartan discontinued Low-dose entresto and Coreg added with parameters Headache likely tension Tylenol when necessary pain Nausea Zofran when necessary Wdn-osweeyk-eoqxnpjjo diabetes mellitus type 2 Resume home medications Monitor glucose levels every 6 hours Insulin sliding scale Check hemoglobin A1c Hx of Hypertension controlled Medications as listed above Hyperlipidemia with CAD Resume statin History of atrial fibrillation status post ablation Resume eliquis Check TSH with reflex GI DVT prophylaxis A.m. labs Patient is a full code Anticipated discharge 1-2 days
[2021-06-07 08:45] LABS: African American GFR (CKD) 38 (>60 ml/min/1.73 sqM); Albumin 3.3 g/dL (3.5-5.0); Alkaline Phosphatase 115 U/L (38-126); Anion Gap 16 mmol/L; Blood Urea Nitrogen 32 mg/dL (7-17); Calcium 8.2 mg/dL (8.4-10.2); Carbon Dioxide 18 mmol/L (22-30); Chloride 102 mmol/L (98-107); Glucose 197 mg/dL (74-99); Magnesium 1.6 mg/dL (1.6-2.3); Non-African American GFR(CKD) 33 (>60 ml/min/1.73 sqM); Potassium 4.2 mmol/L (3.5-5.1); Sodium 136 mmol/L (137-145); Total Bilirubin 1.3 mg/dL (0.2-1.3); Total Protein 5.7 g/dL (6.3-8.2)
[2021-06-07] MEDS ORDERED: APIXABAN 2.5 MG TABLET PO SCH (09:00)
[2021-06-07] MEDS ORDERED: FUROSEMIDE 20 MG TAB PO SCH (09:00)
[2021-06-07 09:15] LABS: AST 5385 U/L (14-36)
[2021-06-07 09:16] LABS: ALT 3833 U/L (4-34)
--- NOTE | 2021-06-07 09:35 | P.PN ---
Progress Note - Text Progress Note Date: 06/07/21 Blood work was reviewed and showed elevated creatinine and elevated liver enzymes. This is like due to episode of hypotension from medications BUN and Creatinine will be trended statin will be stopped ACEI/ARB will be stopped liver enzymes will be trended
[2021-06-07 11:34] LABS: Glucose,Whole Blood 263 mg/dL (75-99)
--- NOTE | 2021-06-07 12:09 | PN ---
PROGRESS NOTE Mrs. Lin is an 89-year-old female who presented with oxc-LK-qhqzdar-elevation myocardial infarction with acute dyspnea, underwent cardiac catheterization, was found to have no high-grade stenosis. Her echocardiogram revealed significant impairment of left ventricular systolic function suggestive of a stunt myocardium. She is dyspneic on exertion. She denies any chest pain. She denies any dizziness or palpitations. She has no further symptoms of chest discomfort. She continues to be on Eliquis 2.5 mg twice a day, aspirin once a day, Coreg 3.125 mg twice a day. She is on Lasix 40 mg daily. Her statin and RONNELL inhibitor were held because of worsening renal function and liver function most likely related to hypotension and shock liver related to her presentation. PHYSICAL EXAMINATION: Blood pressure today is 113/70 with a heart rate in 50s. Lungs with no wheezes appreciated. Heart: Regular rate and rhythm S1, S2. No S3. No rub. Abdomen: Soft, nontender. Extremities: No edema. Right radial pulse intact. LAB DATA: Lab data revealed BUN and creatinine 32 and 1.43, potassium 4.2. Her AST is 5385, ALT of 3833. Her hemoglobin is 12. Her EKG revealed T-wave inversion in V1 and V2. IMPRESSION: 1. Acute non STEMI status post cardiac catheterization and no high-grade stenosis. 2. Severe ischemic cardiomyopathy, raising possibility of stunned myocardium. 3. Atrial fibrillation, status post cardioversion, remains in sinus mechanism. 4. Acute renal injury, probably related to the hypotension episode. 5. Acute liver injury. 6. History of hyperlipidemia. 7. Diabetes mellitus. RECOMMENDATIONS: I will continue present therapy. We will have a repeat echocardiogram tomorrow to evaluate her LV systolic function. I will continue holding her RONNELL inhibitor and statin for now. We will follow her liver function and depending on her progress, further recommendations will be made. I am hopeful that we will see improvement in her systolic function. MMODL / IJN: [id number] /
[2021-06-07 15:01] LABS: Albumin 3.4 g/dL (3.5-5.0); Calcium 8.3 mg/dL (8.4-10.2); Potassium 4.2 mmol/L (3.5-5.1); Total Bilirubin 0.9 mg/dL (0.2-1.3); Total Protein 5.9 g/dL (6.3-8.2)
--- NOTE | 2021-06-07 15:32 | US ---
EXAMINATION TYPE: US abdomen limited DATE OF EXAM: 06/07/2021 COMPARISON: NONE CLINICAL HISTORY: elevated liver enzymes . Gallbladder removed. EXAM MEASUREMENTS: Liver Length: 16.1 cm Gallbladder Wall: surgically removed CBD: 1.1 cm Right Kidney: 9.6 x 4.8 x 4.8 cm Pancreas: tail is obscured by bowel gas Liver: wnl; small amount of ascites seen inferior to left liver lobe. Gallbladder: surgically absent Evidence for sonographic Hu's sign: no CBD: size is wnl post cholecystectomy and for 8th decade Right Kidney: No hydronephrosis or masses seen; extracapsular, hypoechoic crescent shaped area seen adjacent to right renal periphery suggests sonographic "sweat sign" indicating renal failure. Right pleural effusion is also noted. IMPRESSION: No evidence of right renal obstruction. No dilated ducts. No focal liver defect. Possible minimal ascites fluid.
[2021-06-07 16:26] LABS: Glucose,Whole Blood 171 mg/dL (75-99)
[2021-06-07 17:24] LABS: Chol/HDL Ratio 2.37 Ratio; LDL Cholesterol,Calculated 38.1 mg/dL (0.0-131.0)
[2021-06-07] MEDS: carvediloL 3.125 MG TAB PO SCH (17:30)
[2021-06-07] MEDS ORDERED: Acetaminophen-Codeine 300-30mg TAB PO PRN ×2 (18:51→19:02)
[2021-06-07 20:32] LABS: Glucose,Whole Blood 125 mg/dL (75-99)
[2021-06-07] MEDS ORDERED: APIXABAN 5 MG TAB PO SCH (21:00)
[2021-06-07] MEDS ORDERED: SACUBITRIL/VALSARTAN 24 MG-26 MG TABLET PO SCH (21:00)
[2021-06-07] MEDS: APIXABAN 2.5 MG TABLET PO SCH (21:32)
[2021-06-08 04:21] LABS: Glucose,Whole Blood 112 mg/dL (75-99)
[2021-06-08] MEDS: IPRATROPIUM-ALBUTEROL 3 ML NEB INHALATION SCH ×5 (04:25→19:33)
[2021-06-08 06:00] LABS: Glucose,Whole Blood 105 mg/dL (75-99)
[2021-06-08] MEDS: carvediloL 3.125 MG TAB PO SCH ×2 (06:30→16:38)
[2021-06-08] MEDS: GLIMEPIRIDE 1 MG TAB PO SCH (06:30)
[2021-06-08] MEDS: INSULIN ASPART (NovoLOG) 100 UNIT/ML VIAL SQ SCH ×3 (06:34→16:44)
[2021-06-08 08:04] LABS: African American GFR (CKD) 45 (>60 ml/min/1.73 sqM); Albumin 3.4 g/dL (3.5-5.0); Alkaline Phosphatase 139 U/L (38-126); Anion Gap 10 mmol/L; Blood Urea Nitrogen 38 mg/dL (7-17); Calcium 8.6 mg/dL (8.4-10.2); Carbon Dioxide 24 mmol/L (22-30); Chloride 103 mmol/L (98-107); Glucose 109 mg/dL (74-99); Non-African American GFR(CKD) 39 (>60 ml/min/1.73 sqM); Potassium 4.6 mmol/L (3.5-5.1); Sodium 137 mmol/L (137-145); Total Bilirubin 1.3 mg/dL (0.2-1.3); Total Protein 6.1 g/dL (6.3-8.2)
[2021-06-08 08:08] LABS: Basophils % (A) 0 %; Eosinophils # (A) 0.1 k/uL (0-0.7); Eosinophils % (A) 1 %; HCT 39.4 % (34.0-46.0); HGB 12.8 gm/dL (11.4-16.0); Lymphocytes # (A) 1.6 k/uL (1.0-4.8); Lymphocytes % (A) 23 %; MCH 30.3 pg (25.0-35.0); MCHC 32.4 g/dL (31.0-37.0); MCV 93.5 fL (80.0-100.0); Mean Platelet Volume 8.5; Monocytes # (A) 0.5 k/uL (0-1.0); Monocytes % (A) 7 %; Neutrophils # (A) 4.7 k/uL (1.3-7.7); Neutrophils % (A) 67 %; Platelet Count 191 k/uL (150-450); RBC 4.22 m/uL (3.80-5.40); RDW 14.6 % (11.5-15.5)
[2021-06-08] MEDS: methIMAzole 5 MG TAB PO SCH (08:09)
[2021-06-08] MEDS: APIXABAN 2.5 MG TABLET PO SCH ×2 (08:09→20:32)
[2021-06-08] MEDS: FUROSEMIDE 40 MG TAB PO SCH (08:10)
[2021-06-08] MEDS: POTASSIUM CHLORIDE ER 20 MEQ TAB.ER PO SCH (08:10)
[2021-06-08] MEDS: ASPIRIN 81 MG PO SCH (08:10)
[2021-06-08] MEDS: FAMOTIDINE 20 MG TAB PO SCH (08:10)
[2021-06-08 08:46] LABS: ALT 3267 U/L (4-34)
[2021-06-08 09:14] LABS: AST 4167 U/L (14-36)
--- NOTE | 2021-06-08 09:20 | P.PN ---
Subjective Principal diagnosis: Shortness of breath. Patient seen and examined at chair side. Patient is awake alert and answers questions appropriately. Patient denies chest pain however she continues to exhibit exertional shortness of breath. Patient is doing much better today and is off oxygen at this time. Objective - Vital Signs Vital signs: Vital Signs Temp 98.3 F 06/08/21 08:08 Pulse 85 06/08/21 08:08 Resp 16 06/08/21 08:08 BP 131/81 06/08/21 08:08 Pulse Ox 99 06/08/21 08:08 Intake & Output 06/07/21 06/08/21 06/08/21 18:59 06:59 18:59 Intake Total 240 180 Output Total 1 Balance 240 -1 180 Weight 68.4 kg Intake: Oral 240 180 Output: Urine 1 Other: Voiding Method Toilet Toilet # Voids 1 # Bowel Movements 1 - Exam General: [non toxic], [no distress], [appears at stated age] Derm: [warm], [dry] Head: [atraumatic], [normocephalic], [symmetric] Eyes: [EOMI], [no lid lag], [anicteric sclera] Mouth: [no lip lesion], [mucus membranes moist] Cardiovascular: [S1S2 reg], [no murmur], [positive posterior tibial pulse bilateral], +2 b/l lower extremity edema Lungs: [CTA bilateral], [no rhonchi, no rales] , [no accessory muscle use] Abdominal: [soft], [ nontender to palpation], [no guarding], [no appreciable organomegaly] Ext: [no gross muscle atrophy], [no edema], [no contractures] Neuro: [ CN II-XI grossly intact], [no focal neuro deficits] Psych: [Alert], [oriented], [appropriate affect.] - Labs CBC & Chem 7: 06/08/21 06:26 06/08/21 06:26 Labs: Abnormal Lab Results - Last 24 Hours (Table) 06/07/21 06/07/21 06/07/21 Range/Units 08:00 11:33 14:22 Sodium 135 L (137-145) mmol/L Carbon Dioxide 20 L (22-30) mmol/L BUN 37 H (7-17) mg/dL Creatinine 1.44 H (0.52-1.04) mg/dL Glucose 199 H (74-99) mg/dL POC Glucose (mg/dL) 263 H (75-99) mg/dL Calcium 8.3 L (8.4-10.2) mg/dL AST 5385 H 6797 H (14-36) U/L ALT 3833 H 3718 H (4-34) U/L Alkaline Phosphatase (38-126) U/L Total Protein 5.9 L (6.3-8.2) g/dL Albumin 3.4 L (3.5-5.0) g/dL 06/07/21 06/07/21 06/08/21 Range/Units 16:25 20:30 04:19 Sodium (137-145) mmol/L Carbon Dioxide (22-30) mmol/L BUN (7-17) mg/dL Creatinine (0.52-1.04) mg/dL Glucose (74-99) mg/dL POC Glucose (mg/dL) 171 H 125 H 112 H (75-99) mg/dL Calcium (8.4-10.2) mg/dL AST (14-36) U/L ALT (4-34) U/L Alkaline Phosphatase (38-126) U/L Total Protein (6.3-8.2) g/dL Albumin (3.5-5.0) g/dL 06/08/21 06/08/21 Range/Units 05:58 06:26 Sodium (137-145) mmol/L Carbon Dioxide (22-30) mmol/L BUN 38 H (7-17) mg/dL Creatinine 1.23 H (0.52-1.04) mg/dL Glucose 109 H (74-99) mg/dL POC Glucose (mg/dL) 105 H (75-99) mg/dL Calcium (8.4-10.2) mg/dL AST 4167 H (14-36) U/L ALT 3267 H (4-34) U/L Alkaline Phosphatase 139 H (38-126) U/L Total Protein 6.1 L (6.3-8.2) g/dL Albumin 3.4 L (3.5-5.0) g/dL Assessment and Plan Assessment: Dyspnea due decompensated systolic heart failure 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 Repeat echo completed today reveals an improved ejection fraction of 40-45% Continue Coreg with parameters Patient status post cath Cath report showed calcified coronary arteries, mild to moderate disease in the LAD and left circumflex, and a patent stent of the RCA. Aggressive medical management recommended Cardiology recommendations appreciated Continue Lasix with KCL Duo nebs for shortness of breath Elevated liver enzymes and MAKENNA secondary to hypotension Today's labs are trending down and improving Avoid statin and ACEI/ARB for now Consider Repatha on outpatient basis for CAD Headache likely tension resolved Tylenol#3 prn Dex-awjecyv-ykheklwqf diabetes mellitus type 2 Resume home medications Monitor glucose levels every 6 hours Insulin sliding scale Check hemoglobin A1c Hx of Hypertension controlled Medications as listed above Hyperlipidemia with CAD hold statin due to elevated liver enzymes History of paroxysmal atrial fibrillation status post ablation Resume eliquis Check TSH with reflex GI DVT prophylaxis A.m. labs Patient is a full code Anticipated discharge 1-2 days
--- NOTE | 2021-06-08 09:36 | PN ---
PROGRESS NOTE This is an 89-year-old lady who recently suffered from coronavirus infection came into hospital with symptoms of sudden onset shortness of breath. She underwent emergent cardiac catheterization that did not reveal significant obstructive CAD. An echocardiogram showed severe LV systolic dysfunction with an ejection fraction of 30% to 35% with mild pulmonary hypertension. She is currently being treated with optimal medical therapy including aspirin, Coreg, Lasix, and Eliquis. Symptom gibson she has improved significantly from her initial presentation. The patient developed both renal insufficiency and elevated liver enzymes on her initial presentation, which have improved somewhat from yesterday, but on her presentation her AST was 69 and it went all the way up to 6-700. EXAM: Today she is comfortable at rest. Vital signs are stable. There is no jugular venous distention. Chest exam reveals good air entry bilaterally. Heart exam reveals first and second heart sounds. A systolic murmur at the apex. Abdomen: Soft. Exam of extremities did not reveal any edema. Peripheral pulses are felt. ASSESSMENT: 1. 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 2. Paroxysmal atrial fibrillation status post recent cardioversion. 3. Recent Covid infection. 4. History of coronary artery disease. PLAN: I am going to hold off on RONNELL inhibitors today as her renal functions are still getting better. Hopefully, I can start her back on the losartan that she was on at a lower dose tomorrow. We will repeat an echocardiogram on her to see if her heart function is improving. ANTONIOL / IJN: [id number] /
--- NOTE | 2021-06-08 11:00 | ECHOF ---
Referral Reason:cm MEASUREMENTS -------- HEIGHT: 160.0 cm WEIGHT: 68.0 kg BP: 145/95 IVSd: 1.3 cm (0.6 - 1.1) LVIDd: 3.0 cm (3.9 - 5.3) LVPWd: 1.3 cm (0.6 - 1.1) IVSs: 1.7 cm LVIDs: 2.2 cm LVPWs: 1.6 cm RAP: 5.00 mmHg RVSP: 39.02 mmHg FINDINGS -------- Sinus rhythm. This was a technically adequate study. Limited Study The left ventricular size is normal. There is mild concentric left ventricular hypertrophy. Overa ll left ventricular systolic function is mild-moderately impaired with, an EF between 40 - 45 %. Ba darwin inferior LV wall motion is hypokinetic. Mid inferoseptal LV wall motion is hypokinetic. Mid anteroseptal LV wall motion is hypokinetic. Apical septum LV wall motion is hypokinetic. There is moderate aortic regurgitation. Moderate mitral regurgitation is present. There is no pericardial effusion. CONCLUSIONS -------- 1. The left ventricular size is normal. 2. There is mild concentric left ventricular hypertrophy. 3. Overall left ventricular systolic function is mild-moderately impaired with, an EF between 40 - 45 %. 4. Basal inferior LV wall motion is hypokinetic. 5. Mid inferoseptal LV wall motion is hypokinetic. 6. Mid anteroseptal LV wall motion is hypokinetic. 7. Apical septum LV wall motion is hypokinetic. 8. There is moderate aortic regurgitation. 9. Moderate mitral regurgitation is present. SEGMENT BLOCK LAYER: Kristen Blanton RDCS
[2021-06-08 11:49] LABS: Hepatitis A Antibody IgM Nonreactive (Nonreactive); Hepatitis B Core IgM Nonreactive (Nonreactive); Hepatitis B Surface Antigen Nonreactive (Nonreactive); Hepatitis C IgG Antibody Nonreactive (Nonreactive)
[2021-06-08 12:07] LABS: Glucose,Whole Blood 157 mg/dL (75-99)
[2021-06-08 14:21] VITALS: BMI 26.6
[2021-06-08 16:42] LABS: Glucose,Whole Blood 163 mg/dL (75-99)
[2021-06-08 19:55] LABS: Glucose,Whole Blood 222 mg/dL (75-99)
[2021-06-09] MEDS: IPRATROPIUM-ALBUTEROL 3 ML NEB INHALATION SCH ×4 (02:32→12:39)
[2021-06-09 06:15] LABS: Glucose,Whole Blood 121 mg/dL (75-99)
[2021-06-09] MEDS: INSULIN ASPART (NovoLOG) 100 UNIT/ML VIAL SQ SCH ×2 (06:15→13:25)
[2021-06-09] MEDS: carvediloL 3.125 MG TAB PO SCH (06:31)
[2021-06-09] MEDS: GLIMEPIRIDE 1 MG TAB PO SCH (06:31)
[2021-06-09 08:48] LABS: Basophils % (A) 0 %; Eosinophils # (A) 0.2 k/uL (0-0.7); Eosinophils % (A) 2 %; HCT 42.7 % (34.0-46.0); HGB 13.6 gm/dL (11.4-16.0); Lymphocytes # (A) 1.1 k/uL (1.0-4.8); Lymphocytes % (A) 14 %; MCH 29.8 pg (25.0-35.0); MCHC 31.7 g/dL (31.0-37.0); MCV 93.8 fL (80.0-100.0); Mean Platelet Volume 8.5; Monocytes # (A) 0.4 k/uL (0-1.0); Monocytes % (A) 6 %; Neutrophils # (A) 5.8 k/uL (1.3-7.7); Neutrophils % (A) 77 %; Platelet Count 235 k/uL (150-450); RBC 4.56 m/uL (3.80-5.40); RDW 14.5 % (11.5-15.5); WBC 7.6 k/uL (3.8-10.6)
[2021-06-09 09:04] LABS: Albumin 3.9 g/dL (3.5-5.0); Calcium 9.1 mg/dL (8.4-10.2); Potassium 4.6 mmol/L (3.5-5.1); Total Bilirubin 1.3 mg/dL (0.2-1.3); Total Protein 6.9 g/dL (6.3-8.2)
[2021-06-09] MEDS ORDERED: LOSARTAN 25 MG TAB PO SCH (10:15)
[2021-06-09 10:21] VITALS: BP 137/70; RESP 16; TEMP 98.4
[2021-06-09] MEDS: APIXABAN 2.5 MG TABLET PO SCH (10:22)
[2021-06-09] MEDS: methIMAzole 5 MG TAB PO SCH (10:22)
[2021-06-09] MEDS: POTASSIUM CHLORIDE ER 20 MEQ TAB.ER PO SCH (10:22)
[2021-06-09] MEDS: FAMOTIDINE 20 MG TAB PO SCH (10:22)
[2021-06-09] MEDS: FUROSEMIDE 40 MG TAB PO SCH (10:22)
[2021-06-09] MEDS: ASPIRIN 81 MG PO SCH (10:23)
[2021-06-09] MEDS ORDERED: ALBUTEROL NEBULIZED 2.5 MG/3 ML INHALATION PRN (10:32)
--- NOTE | 2021-06-09 10:32 | P.DS ---
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 After dinner last night patient was walking up the stairs and felt more short of breath than she usually does. This was abnormal for her. As a result her called EMS and patient was brought to the emergency department. Patient denies ever having chest pain. Patient has noted increased bilateral lower extremity edema. Patient has a known history of diabetes type 2, coronary artery disease with PTCA 1, hypertension, hyperlipidemia, and history of atrial fib status post ablation. Patient was identified as having a STEMI. Patient was placed on IV heparin. Repeat EKG showed ST elevation resolution. Patient was taken to the [facility] after discussion with cardiology and concern for coronary artery disease progression. Cath report showed calcified coronary arteries, mild to moderate disease in the LAD and left circumflex, and a patent stent of the RCA. Medical management was recommended. CTA of the chest showed no evidence of pulmonary embolism. Small pleural effusions with some patchy basilar atelectasis and scarring. No suspicious pulmonary mass. Mild thoracic aortic aneurysm. On assessment patient states that she feels okay despite her shortness of breath. Patient is currently on 3 L of oxygen nasal cannula. Patient continues to have difficulty breathing. Patient states that albuterol inhalers to help her breathing. Initial echocardiogram done on 06/06/2021 showed ejection fraction of 30-35%. Repeat echocardiogram done on 06/08/2021 showed improvement with an ejection fraction of 40-45%. Cardiology concluded that patient had takosubo syndrome. Patient's initial antihypertensives had her develop hypotension. These medications had to be stopped patient was given fluids and parameters were placed. As a result, patient's creatinine was elevated and her liver enzymes we re also elevated. Statin was stopped as well as all nephrotoxic agents. Labs were trended creatinine improved as well as AST and ALT. Statin will likely be re-started once liver enzymes normalize. Patient persists to have some mild shortness of breath with exertion. Is tolerating new medications well. Patient seen and evaluated at bedside. Patient denied chest pain. Patient denied nausea, vomiting, fever, or chills. General: [non toxic], [no distress], [appears at stated age] Derm: [warm], [dry] Head: [atraumatic], [normocephalic], [symmetric] Eyes: [EOMI], [no lid lag], [anicteric sclera] Mouth: [no lip lesion], [mucus membranes moist] Cardiovascular: [bradycardia], [systolic murmur], [positive posterior tibial pulse bilateral], Lungs: [CTA bilateral], [no rhonchi, no rales] , [no accessory muscle use] Abdominal: [soft], [ nontender to palpation], [no guarding], [no appreciable organomegaly] Ext: [no gross muscle atrophy], [no edema], [no contractures] Neuro: [ CN II-XI grossly intact], [no focal neuro deficits] Psych: [Alert], [oriented], [appropriate affect] Condition fair Disposition home Activity as tolerated Diet diabetic Follow-up with PCP in 2-7 days Follow-up with cardiology in 1 week Plan - Discharge Summary New Discharge Prescriptions: New Aspirin 81 mg PO DAILY 30 Days #30 tab carvediloL [Coreg] 3.125 mg PO BID-W/MEALS 30 Days #60 tab Losartan [Cozaar] 25 mg PO DAILY 30 Days #30 tab Furosemide [Lasix] 40 mg PO DAILY 30 Days #30 tab Apixaban [Eliquis] 2.5 mg PO BID tablet Potassium Chloride ER [K-Dur 20] 20 meq PO DAILY 30 Days #30 tablet Famotidine [Pepcid] 20 mg PO DAILY 30 Days #30 tab Albuterol Inhaler [Ventolin Hfa Inhaler] 2 puff INHALATION RT-QID PRN 30 Days #1 gm PRN Reason: Shortness Of Breath Or Wheezing Continue Atorvastatin [Lipitor] 40 mg PO HS methIMAzole [Tapazole] 2.5 mg PO MOTUTHFRSA Acetaminophen-Codeine 300-30mg [Tylenol w/codeine #3] 1 - 2 tab PO Q8H PRN PRN Reason: Migraine Headache ALPRAZolam [Xanax] 0.25 mg PO DAILY PRN PRN Reason: Anxiety Cyclobenzaprine [Flexeril] 5 mg PO HS PRN PRN Reason: Pain Glimepiride [Amaryl] 0.5 mg PO AC-BRKFST Apixaban [Eliquis] 2.5 mg PO BID metFORMIN HCL 1,000 mg PO BID Discontinued atenoloL [Tenormin] 50 mg PO HS amLODIPine [Norvasc] 5 mg PO DAILY Losartan Potassium 100 mg PO DAILY Discharge Medication List Atorvastatin [Lipitor] 40 mg PO HS 08/18/15 [History] methIMAzole [Tapazole] 2.5 mg PO MOTUTHFRSA 08/18/15 [History] ALPRAZolam [Xanax] 0.25 mg PO DAILY PRN 08/20/15 [History] Acetaminophen-Codeine 300-30mg [Tylenol w/codeine #3] 1 - 2 tab PO Q8H PRN 08/20/15 [History] Cyclobenzaprine [Flexeril] 5 mg PO HS PRN 08/20/15 [History] Apixaban [Eliquis] 2.5 mg PO BID 06/06/21 [History] Glimepiride [Amaryl] 0.5 mg PO AC-BRKFST 06/06/21 [History] metFORMIN HCL 1,000 mg PO BID 06/06/21 [History] Albuterol Inhaler [Ventolin Hfa Inhaler] 2 puff INHALATION RT-QID PRN 30 Days #1 gm 06/09/21 [Rx] Apixaban [Eliquis] 2.5 mg PO BID tablet 06/09/21 [Rx] Aspirin 81 mg PO DAILY 30 Days #30 tab 06/09/21 [Rx] Famotidine [Pepcid] 20 mg PO DAILY 30 Days #30 tab 06/09/21 [Rx] Furosemide [Lasix] 40 mg PO DAILY 30 Days #30 tab 06/09/21 [Rx] Losartan [Cozaar] 25 mg PO DAILY 30 Days #30 tab 06/09/21 [Rx] Potassium Chloride ER [K-Dur 20] 20 meq PO DAILY 30 Days #30 tablet 06/09/21 [Rx] carvediloL [Coreg] 3.125 mg PO BID-W/MEALS 30 Days #60 tab 06/09/21 [Rx] Follow up Appointment(s)/Referral(s): Cricket Maurer MD [STAFF PHYSICIAN] - 1 Week Betzaida Nunez MD [Primary Care Provider] - 1-2 days
[2021-06-09 12:00] LABS: Glucose,Whole Blood 182 mg/dL (75-99)
[2021-06-09 12:43] VITALS: PULSE 80
--- NOTE | 2021-06-09 13:37 | P.PN ---
Subjective This is an 89-year-old female with a past medical history of coronary artery disease status post PCI to RCA 2015, paroxysmal atrial fibrillation status post cardioversion in 01/2021, hypertension, type 2 diabetes, dyslipidemia. Patient follows in the office with Dr. Maurer. We're following the patient for shortness of breath and cardiomyopathy. Patient underwent cardiac catheterization with Dr. Maurer on 06/06/2021 which did not reveal significant obstructive CAD. Echocardiogram revealed severe LV systolic dysfunction with an EF of 3035 percent, mild pulmonary hypertension. Her repeat echocardiogram on 05/2020 revealed improvement in her EF of 4045%. Patient seen and examined at bedside, no distress. She denies any further meg rtness of breath or chest pain. She is ambulating in her room in the halls with no acute distress. She is currently maintained on Eliquis 2.5 mg twice a day, aspirin 81 mg daily, carvedilol 3.125 mg twice a day, Lasix 40 mg daily, losartan 25 mg daily. Labs, CBC unremarkable, sodium 140, potassium 4.6, BUN 25, serum creatinine 0.9, liver enzymes are downtrending, AST 1636, ALT 2577. GENERAL: Well-appearing, well-nourished and in no acute distress. NECK: Supple without JVD or thyromegaly. LUNGS: Breath sounds clear to auscultation bilaterally. Respiration equal and unlabored. No wheezes, rales or rhonchi. HEART: Regular rate and rhythm without. Systolic ejection murmur at apex. S1 and S2 heard. EXTREMITIES: Normal range of motion, no edema. No clubbing or cyanosis. Peripheral pulses intact. 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 Maurer, patient has an appointment on 06/22/20 at 9:45AM. Nurse Practitioner note has been reviewed, I agree with a documented findings and plan of care. Patient was seen and examined. Objective - Vital Signs Vital signs: Vital Signs Temp 98.4 F 06/09/21 10:21 Pulse 80 06/09/21 12:53 Resp 16 06/09/21 10:21 BP 137/70 06/09/21 10:21 Pulse Ox 96 06/09/21 10:21 Intake & Output 06/08/21 06/09/21 06/09/21 18:59 06:59 18:59 Intake Total 360 485 118 Balance 360 485 118 Weight 68.4 kg 67.8 kg Intake: Oral 360 485 118 Other: Voiding Method Toilet Toilet Toilet # Voids 1 1 1 - Labs CBC & Chem 7: 06/09/21 07:32 06/09/21 07:32 Labs: Abnormal Lab Results - Last 24 Hours (Table) 06/08/21 06/08/21 06/09/21 Range/Units 16:40 19:54 06:13 BUN (7-17) mg/dL Glucose (74-99) mg/dL POC Glucose (mg/dL) 163 H 222 H 121 H (75-99) mg/dL AST (14-36) U/L ALT (4-34) U/L Alkaline Phosphatase (38-126) U/L 06/09/21 06/09/21 Range/Units 07:32 11:57 BUN 25 H (7-17) mg/dL Glucose 154 H (74-99) mg/dL POC Glucose (mg/dL) 182 H (75-99) mg/dL AST 1636 H (14-36) U/L ALT 2577 H (4-34) U/L Alkaline Phosphatase 179 H (38-126) U/L
== END 2021-06-09 13:43 | disposition home or self-care (01) | DRG 286 ==
LOC: EC 21:45 → INTOOBSV 06-06 02:13 → 3SCARD 06-06 02:13 → OBSVTOIN 06-08 13:38 → UNDODISOB 06-09 13:43 → UNDODISIN 06-09 13:43
PROVIDERS: ADMIT Internal Medicine; ATTEND Internal Medicine
PROC: B2110ZZ Fluoroscopy of Multiple Coronary Arteries using High Osmolar Contrast (ICD-10-PCS; 2021-06-06)
PROC: 4A023N7 Measurement of Cardiac Sampling and Pressure, Left Heart, Percutaneous Approach (ICD-10-PCS; principal; 2021-06-06 06:24)
DX: I51.81 Takotsubo syndrome (principal); I50.23 Acute on chronic systolic (congestive) heart failure; K72.00 Acute and subacute hepatic failure without coma; I48.19 Other persistent atrial fibrillation; J98.11 Atelectasis; N17.9 Acute kidney failure, unspecified; I11.0 Hypertensive heart disease with heart failure; E11.9 Type 2 diabetes mellitus without complications; Z20.822 Contact with and (suspected) exposure to COVID-19; I25.10 Atherosclerotic heart disease of native coronary artery without angina pectoris; I95.2 Hypotension due to drugs; Z86.16 Personal history of COVID-19; I48.0 Paroxysmal atrial fibrillation; I25.5 Ischemic cardiomyopathy; E78.5 Hyperlipidemia, unspecified; R74.01 Elevation of levels of liver transaminase levels; E78.00 Pure hypercholesterolemia, unspecified; I08.1 Rheumatic disorders of both mitral and tricuspid valves; G43.909 Migraine, unspecified, not intractable, without status migrainosus; T44.7X5A Adverse effect of beta-adrenoreceptor antagonists, initial encounter; T46.1X5A Adverse effect of calcium-channel blockers, initial encounter; T46.5X5A Adverse effect of other antihypertensive drugs, initial encounter; I27.20 Pulmonary hypertension, unspecified; R01.1 Cardiac murmur, unspecified; I71.2 Thoracic aortic aneurysm, without rupture; D72.829 Elevated white blood cell count, unspecified; M19.90 Unspecified osteoarthritis, unspecified site; R42 Dizziness and giddiness; M19.042 Primary osteoarthritis, left hand; M19.041 Primary osteoarthritis, right hand; Z90.49 Acquired absence of other specified parts of digestive tract; Z95.5 Presence of coronary angioplasty implant and graft; Z79.890 Hormone replacement therapy; I25.2 Old myocardial infarction; Z79.01 Long term (current) use of anticoagulants; Z79.82 Long term (current) use of aspirin; Z79.84 Long term (current) use of oral hypoglycemic drugs; Z79.899 Other long term (current) drug therapy; X58.XXXA Exposure to other specified factors, initial encounter
CPT/HCPCS: 36415; 71046; 71275; 76705; 80053; 80061; 80074; 83036; 83735; 84443; 84484; 85025; 85610; 87635; 93005; 93306; 93308; 93458; 94640; 99291